=== PATIENT | female | born 1980 | race Two or more races ===

== ENCOUNTER 2024-06-06 04:59 | Day surgery (SDC) | payer OTHER ==
[2024-06-04 14:13] VITALS: BMI 28.3
[2024-06-06] MEDS ORDERED: LIDOCAINE 1%/EPI 1:100000 (20 ML MULTI DOSE VIAL) ONE (12:07)
[2024-06-06] MEDS ORDERED: COCAINE HCL 4% TOPICAL SOLUTION 4 ML BOTTLE TP ONE (12:08)
[2024-06-06] MEDS: ceFAZolin SODIUM 1 GM VIAL IVPB ONE (12:50)
[2024-06-06] MEDS: LIDOCAINE 1%/EPI 1:100000 (20 ML MULTI DOSE VIAL) IJ ONE (13:02)
[2024-06-06] MEDS: COCAINE HCL 4% TOPICAL SOLUTION 4 ML BOTTLE TP ONE (13:02)
[2024-06-06] MEDS ORDERED: ACETAMINOPHEN INJECTION 100 ML IVPB ONE (13:43)
[2024-06-06] MEDS ORDERED: ACETAMINOPHEN 325 MG TABLET (FP) PO PRN (14:29)
[2024-06-06] MEDS ORDERED: LACTATED RINGERS SOLUTION 1,000 ML IV SCH ×2 (14:30→15:00)
[2024-06-06] MEDS ORDERED: ONDANSETRON 4 MG/2 ML VIAL IVPUSH PRN (14:53)
[2024-06-06 17:49] VITALS: RESP 16
[2024-06-06] MEDS ORDERED: oxyCODONE HCL 5 MG TABLET ONE (18:11)
[2024-06-06] MEDS: oxyCODONE HCL 5 MG TABLET PO PRN (18:14)
[2024-06-06 18:26] VITALS: PULSE 92
[2024-06-06 19:24] VITALS: BP 113/65; TEMP 98.2
== END 2024-06-06 19:05 | disposition home or self-care (01) ==
LOC: JASU-SURG 04:59
PROVIDERS: ATTEND Otolaryngology
PROC: 09TU8ZZ Resection of Right Ethmoid Sinus, Via Natural or Artificial Opening Endoscopic (ICD-10-PCS; 2024-06-06)
PROC: 8E09XBZ Computer Assisted Procedure of Head and Neck Region (ICD-10-PCS; 2024-06-06)
PROC: 09BK8ZX Excision of Nasal Mucosa and Soft Tissue, Via Natural or Artificial Opening Endoscopic, Diagnostic (ICD-10-PCS; 2024-06-06)
PROC: 099R8ZZ Drainage of Left Maxillary Sinus, Via Natural or Artificial Opening Endoscopic (ICD-10-PCS; 2024-06-06)
PROC: 099Q8ZZ Drainage of Right Maxillary Sinus, Via Natural or Artificial Opening Endoscopic (ICD-10-PCS; 2024-06-06)
PROC: 09TV8ZZ Resection of Left Ethmoid Sinus, Via Natural or Artificial Opening Endoscopic (ICD-10-PCS; principal; 2024-06-06 11:00)
DX: J32.4 Chronic pansinusitis (principal); J34.3 Hypertrophy of nasal turbinates; J39.8 Other specified diseases of upper respiratory tract; J33.8 Other polyp of sinus
CPT/HCPCS: 81025; 88304-TC; 94760; J0131